=== PATIENT | female | born 1970 | race African-American/Black ===

== ENCOUNTER 2018-07-23 05:31 | Observation (INO) | payer OTHER ==
[~2018-07-23] VITALS: Ht 165.1 cm; Wt 131.1 kg
[2018-07-23 13:16] VITALS: BP 177/79
[2018-07-23 17:26] VITALS: BP 155/90
--- NOTE | 2018-07-23 18:37 | NUR ---
Pt arrived to floor per cart from recovery room at 1700 in stable condition. Post op assessment completed.Medicated pt with morphine with partial relief. Family in room with pt.Dinner given and well tolerated. will continue to monitor.
[2018-07-23 20:00] VITALS: BP 171/83
--- NOTE | 2018-07-24 00:44 | NUR ---
Assumed care of pt at 1900. Pt alert and oriented x4. Pt rates pain /10. Prn pain meds administered. Dressing clean and intact. Immobilizer in place on right lower extremity. Call light within reach. Will continue to monitor and assist with needs.
[2018-07-24 05:25] VITALS: BP 146/69
--- NOTE | 2018-07-24 07:50 | NUR ---
ASSUMED CARE OF PT AT 0700. ASSESSMENT COMPLETED. A&O,X4. C/O LEFT KNEE PAIN S/P PATELLAR TENDON REPAIR, PAIN MEDS GIVEN ORDERED. DENIES N/V/V. ROOM AIR, NO SOA. REGULAR HEART SOUNDS, NO CHEST PAIN. ACTIVE BOWEL SOUNDS, LBM 3/5. SKIN INTACT. LEFT KNEE CAMI DRESSING, MACIE WRAP, MARY HOSE, IMMOBILIZER IN PLACE. PULSES +2/+2. PT USING BEDPAN TO URINATE, WILL WORK WITH P.T. TODAY. WILL CONTINUE TO MONITOR.
[2018-07-24 09:01] VITALS: BP 144/59
[2018-07-24] MEDS ORDERED: FLEXERIL PO (10:14)
--- NOTE | 2018-07-24 10:15 | O ---
[address] [address] OPERATIVE REPORT Name: PETTY BATES Room #: 430-P [facility]..#: [id number] Admission: 07/23/18 ������������������ Attend Phys: Denny Saucedo MD Discharge: ������������������ Date of : 72 Report #: [id number] THIS REPORT FOR: //name// CC: BALWINDER Saucedo Physician staff DATE OF SERVICE: 07/23/2018 SERVICE: Orthopedics. FACILITY: [place] [place]. SURGEON: Denny Saucedo MD. MACHINE FUR CLEANER: Marisela Hanson NP. INDICATION FOR MACHINE FUR CLEANER: Extremity positioning, suture management and assistance with the repair as well as exposure. PREOPERATIVE DIAGNOSIS: Acute left knee patellar tendon rupture. POSTOPERATIVE DIAGNOSES: Acute left knee patellar tendon rupture, patellofemoral arthritis, left knee. PROCEDURE: 1. Open left knee patellar tendon repair 2. Patellofemoral chondroplasty, left knee. ANESTHESIA: General. COMPLICATIONS: None. DRAINS: None. SPECIMENS: None. FINDINGS: 1. Increased complexity due to the severe amount of fraying of the tendon itself as well as the venous varicosities that were present about the knee. 2. Primary repair through bone tunnels with labral tape. POSTOPERATIVE PROTOCOL: Range of motion will begin 0-30 degrees. At the 6-week point, we will begin range of motion progressing from there. She will be foot flat partial weightbearing with assistive device for 6 weeks as well. 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 She presented to the clinic and was indicated for surgery as she had the inability to lift her leg. We had discussion about risks, benefits, alternatives, and indications for surgery and she gave full informed consent and wished to proceed. Risks include but not limited to pain, bleeding, infection, injury to nerves or blood vessels, persistent pain despite surgical intervention, failure of the repair, progression of any preexisting chondral injury, stiffness, need for further surgery as well as complications related to anesthesia such as stroke, heart attack, pulmonary complications, thromboembolic disease and . PROCEDURE IN DETAIL: After left leg was correctly identified in the preop holding as operative site, the patient was taken to the operating where general anesthesia was induced without complication. She was padded appropriately. Prophylactic antibiotics were administered at appropriate time. Tourniquet was applied to the left leg. Left leg was then prepped and draped in standard sterile fashion. Time-out procedure was performed. Esmarch was used to exsanguinate. The tourniquet was inflated to 250 mmHg. An anterior approach incision was made and the incision taken down through the skin down to the layer of the fascia and the patellar tendon. The ruptured fibers could be easily visualized. The hemarthrosis was evacuated and irrigated. During the exposure, the patient's blood pressure spiked into the 150 plus range, which resulted in bleeding that was present occurring through the significant amount of venous varicosities that were present. We spend some additional time obtaining hemostasis. The total estimated blood loss was approximately 200 mL during the procedure as a result of this. Ultimately, I took the tourniquet down, reapplied the Esmarch and then reinflated the tourniquet to 350 mmHg to account for the venous varicosities that were present in the anterior aspect of the knee and adequate hemostasis achieved the remainder portion of the case. The patient's patellar tendon rupture was quite complex, actually was almost V-shaped in its orientation with the medial portion of the tendon pulled off of the inferior pole of the patella, but the more central and lateral portion essentially shredded in a coronal plane split. This required some additional effort in terms of the repair itself. There was sufficient deep and medial tendon on the tibial tubercle that I was able to create 2 Longton sutures with a total of 4 limbs running down and up with the locking Longton stitch with suture tape. Because of the orientation, the traditional repair would necessitate 3 transosseous patellar drill holes, but this particular orientation only allowed for 2, so I placed them more medial and then the central drill holes in the standard fashion and then passed the sutures through these, which provided direct repair of the medial portion of the tendon to the medial portion of the inferior pole of the patella after a bony trough had been prepared. Prior to closing the repair, I examined the joint and noted significant chondromalacia. There was also a loose fragment of articular cartilage present on the backside [address] [address] OPERATIVE REPORT Name: PETTY BATES Room #: 430-P [facility] M.R.#: [id number] Admission: 07/23/18 ������������������ Attend Phys: Denny Saucedo MD Discharge: ������������������ Date of : 72 Report #: [id number] of the patella, which was quite small on the order of about 3 mm and then a larger one about 6 mm x 6 mm on the trochlea likely as a result of the trauma. I used a rongeur to gently resect the unstable cartilage and performed the chondroplasty. 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 There were no full thickness lesions that I noted. After the tendon was repaired directly to the bone, the remaining portion of the tendon, which was about 50% was frayed and was still attached to the central and lateral portion of the patella was evaluated. I performed a very minimal debridement of this tissue in order to use it as collagen reinforcement to the direct repair. I used the labral tape to then place additional sutures spending additional time with essentially spot weld type sutures, first fixing the distal medial corner to the [place] tendon on the tibial side with a modified Helvetia type of stitch, then placed an additional tape suture in a similar fashion just a lateral and then used #1 Vicryl to repair the frayed retinaculum as well as the remaining portion of the frayed tendon with multiple interrupted stitches placed throughout the tendon with the knee placed in slight flexion in order to avoid over constraint of the repair. I then used with #1 Vicryl to oversew the suture tape notch, so that there was not any prominent suture material. I then completed the retinacular repair, which was primarily medial, although there was some retinacular injury lateral to the patella as well. The paratenon was repaired with #1 Vicryl suture as well and then I closed the fascial layer with 0 Vicryl suture and then the skin with 2-0 Vicryl followed by running subcuticular 3-0 Monocryl and Dermabond. Note that prior to closure after the repair was completed, I assessed the stability of the patellar tendon repair and it was 30 and secured a 50 degrees of knee flexion. We will start her range of motion at 30 degrees on the postoperative period. Sterile dressing was applied. Tourniquet was let down. The patient was awakened from anesthesia and taken to recovery room in stable condition. No complications and all counts were recorded as correct. A MARY hose stocking was applied while exiting the operating room as well as a hinged knee brace locked in extension and a PolarCare device. ��������������������������������������������� <ELECTRONICALLY SIGNED> ���������������������������������������� By: Denny Saucedo MD ��������������������������������������������� 07/24/18 [id number] Denny Saucedo MD /nt
[2018-07-24 10:24] VITALS: BP 144/59
--- NOTE | 2018-07-24 15:58 | NUR ---
PT ADMITTED RELATED TO LT PETELLAR TENDON REPAIR. CM REVIEWED CHART AND SPOKE WITH CARE TEAM. CM MET WITH PT AT BEDSIDE THIS DAY. PT IS A&O X4. MC ROLE INTRODUCED. PT INDICATED THAT SHE LIVES ALONE IN A HOUSE WITH 5 STEPS TO ENTER AND NO STEPS INSIDE. PT INDICATED SHE HAD BEEN INDEOENDENT WITH GAIT AND ADLS PRIOR TO INJURY. PT IS HERE ON [employer] CLAIM. SHE WORKS AT [employer]. [employer] AND [employer] ARE MANAGING HER CLAIM. CM SPOKE WITH [facility] AND [facility] P: F: . CM INDICATED THAT PT NEEDS WHEELCHAIR, FWW, BSC, AND HOME HEALTH PT FOR DISCHARGE TODAY. THEY DIRECTED CM TO [facility] P: FAX: AND [facility] F: . [facility] INDICATED THAT THEY WERE WORKING ON FILLING THE DME AND THAT IT SHOULD BE DELIVERED THIS DAY. CM INDICATED THAT PT PLANS TO GO TO HER SON'S HOUSE UPON DC AT [address] [facility] [place] [place] [address]. CM AWAITING HOME HEALTH ORDERS TO BE ENTERED. CM TO FAX TO [facility] ONCE ENTERED. CM TO FOLLOW INDICATED WITH DC PLANNING.
--- NOTE | 2018-07-24 17:30 | NUR ---
CM CALLED TO CHECK THE STATUS OF PT'S DME DELIVERY. CM SPOKE WITH [facility] AND THEY INDICATED THAT THEY WOULD NOT BE ABLE TO DELIVER THE FWW, WC, OR BSC UNTIL TOMORROW NOW. CM NOTIFIED PT'S NURSE WHO WAS GOING TO NOTIFY THE PHYSICIAN. CM TO FOLLOW UP WITH ALL INVOLVED TOMORROW.
--- NOTE | 2018-07-24 18:11 | NUR ---
DISCHARGE ORDERS. PT UNABLE TO DISCHARGE TODAY DUE TO MEDICAL EQUIPMENT NOT AVAILABLE, SUPPORT DBA NOTIFIED. NO OTHER CHANGE IN PT STATUS.
[2018-07-24 18:22] VITALS: BP 155/88
[2018-07-24 19:15] VITALS: BP 147/71
--- NOTE | 2018-07-25 02:25 | NUR ---
Assumed care of pt at 1900. Pt a&o x4. SBA to the bedside commode. Dressing on left lower extremity clean and intact. Polar pack in place. Pt sleeping in the reclining chair. Prn pain meds administered. Call light within reach.
[2018-07-25 04:03] VITALS: BP 119/63
[2018-07-25 07:21] VITALS: BP 144/59
--- NOTE | 2018-07-25 09:00 | NUR ---
ASSUMED CARE OF PT AT 0700. ASSESSMENT COMPLETED. A&O,X4. C/O TOLERABLE 4/10 LEFT KNEE PAIN S/P TENDON REPAIR. CAMI DRESSING, MACIE WRAP, POLAR PACK, MARY HOSE IN PLACE. +2/+2 PULSES. ROOM AIR. REGULAR HEART SOUNDS. DENIES N/V/D. WILL CONTINUE TO MONITOR.
[2018-07-25 09:16] VITALS: BP 144/71
[2018-07-25 15:24] VITALS: BP 144/59
--- NOTE | 2018-07-25 16:01 | NUR ---
PT. DISCHARGING TODAY TO HOME WITH [facility]. SPOKE WITH REGINALDO IN ADM. SHE RECEIVED DC ORDERS/SUMMARY AND WILL NOTIFY PT. OF TIME OF VISITS,
--- NOTE | 2018-07-25 17:43 | NUR ---
PATIENT RECEIVED WHEELCHAIR AND ALL DME. DISCHARGE INFORMATION DISCUSSED WITH PT AND SON AT BEDSIDE. NEW SCRIPTS AND CARENOTES GIVEN. IV REMOVED, NO BLEEDING. PT LEFT IN STABLE CONDITION VIA WHEELCHAIR AT 17:45.
--- NOTE | 2018-07-26 09:45 | NUR ---
SPOKE WITH JAROD IN ADM. AT [facility] SHE RECEIVED JUST THE DC SUMMARY. DCP FAXED DC ORDERS AND CLINICAL UPDATE AND SPOKE WITH JAROD AND SHE RECEIVED FAX.
== END 2018-07-25 17:55 | disposition home or self-care (01) ==
LOC: TBA 05:31 → OR 05:31 → TBA 05:32 → OR 15:06 → 4E 16:38 → OR 16:39 → 4E 07-25 17:55
PROVIDERS: ADMIT Orthopaedic Surgery Sports Medicine
DX: S76.112A Strain of left quadriceps muscle, fascia and tendon, initial encounter (principal); F17.200 Nicotine dependence, unspecified, uncomplicated; Z79.899 Other long term (current) drug therapy; W22.8XXA Striking against or struck by other objects, initial encounter; Y93.89 Activity, other specified; Y92.9 Unspecified place or not applicable
CPT/HCPCS: 10783; 50010; 50101; 50386; 51320; 52001; 52282; 54118; 55430; 56521; 56525; 56526; 56527; 56528; 57091; 57116; 57180; 62110; 62900; 70005